=== PATIENT | male | born 1960 | race Caucasian/White ===

== ENCOUNTER → 2018-03-18 14:12 | Outpatient (POV) | payer MEDICAID, SELFPAY | PROVIDERS: Visit Provider Internal Medicine | DX: Z00.00 Encounter for general adult medical examination without abnormal findings (principal) ==

== ENCOUNTER → 2018-03-24 11:12 | Outpatient (CLI) | payer MEDICAID, SELFPAY ==
[2018-03-24 11:49] LABS: Basophils # 0.1 K/mm3 (0-0.2); Basophils % 0.9 % (0.1-2.0); Eosinophils # 0.1 K/mm3 (0.0-0.4); Eosinophils % 1.6 % (0.1-12.0); Hematocrit 45.7 % (42.0-52.0); Hemoglobin 14.3 g/dL (14.1-18.0); Lymphocytes # 2.8 K/mm3 (0.7-4.5); Lymphocytes % 32.6 K/mm3 (10-50); Mean Corpuscular HGB Conc 31.4 g/dL (31.8-35.4); Mean Corpuscular Hemoglobin 29.9 pg (27.0-31.2); Mean Corpuscular Volume 95.5 fl (80-94); Mean Platelet Volume 8.1 fl (7.4-10.4); Monocytes # 0.7 K/mm3 (0.1-1.0); Monocytes % 7.7 % (1.7-9.3); Neutrophils # 4.8 K/mm3 (1.8-7.8); Neutrophils % 57.2 % (37.0-80.0); Platelet Count 234 K/mm3 (142-424); Red Blood Count 4.79 M/mm3 (4.60-6.20); Red Cell Distribution Width 13.1 % (11.5-17.5); White Blood Count 8.5 K/mm3 (4.8-10.8)
[2018-03-24 14:49] LABS: Anion Gap 13.9 mEq/L (5-15); Blood Urea Nitrogen 19 mg/dL (7-18); Calcium 9.2 mg/dL (8.5-10.1); Carbon Dioxide 30 mmol/L (21.0-32.0); Chloride 104 mmol/L (98-107); Creatinine,Serum 0.93 mg/dL (0.70-1.30); Estimated Glomerular Filt Rate 84 ml/min (>60); GFR (African American) 102 ML/MIN (>60); Glucose 92 mg/dL (74-106); Potassium 4.9 mmoL/L (3.5-5.1); Sodium 143 mmol/L (136-145)
== END ==
PROVIDERS: PCP Internal Medicine Adolescent Medicine; Visit Provider Otolaryngology
DX: Z01.818 Encounter for other preprocedural examination (principal); D48.5 Neoplasm of uncertain behavior of skin
CPT/HCPCS: 36415; 80048; 85025

== ENCOUNTER → 2018-04-03 06:54 | Outpatient (CLI) | payer MEDICAID, SELFPAY ==
--- NOTE | 2018-04-03 06:56 | CA_ITS ---
PROCEDURE: 2-D M-mode and color Doppler study INDICATIONS FOR THE TEST: Chest pain COPD Heart Murmur Tobacco Smoking Palpitations Fatigue Syncope Edema+ Hypertension+Diabetes Mellitus+ Rheumatic Fever SOB+GODOY+Obesity Hyperlipidemia Family History HD Additional History CABG, bradycardia, angina, SOA PATIENT INFORMATION HEIGHT: 65 WEIGHT: 186 GENDER: Male B/P: 127/74 2-D/M-MODE INTERPRETATION: 2-D MEASUREMENTS OBSERVED VALUES IN CMS Right Ventricular Dimension (RVDd) 3.1 Interventricular Septum (Thickness)(IVsd) 0.9 Left Ventricular Internal Dimensions(LVIDd) 4.5 Left Ventricular Posterior Wall (Thickness)(LVPWd) 0.8 Aortic Root 3.0 Aortic Cusp Separation 2.0 Left Atrial Dimensions (LAD) 4.4 2D 1. Left atrium is mildly enlarged, left ventricle is normal size, mild concentric left ventricular hypertrophy, visually estimated ejection fraction 55% with no regional wall motion abnormality. 2. The right atrium and right ventricle are mildly enlarged with normal contractility. 3. The aortic valve is minimally thickened and fibrosed. 4. The mitral and tricuspid valve are grossly normal. 5. The pulmonic valve is poorly present. 6. No significant pericardial effusion noted. DOPPLER INTERROGATION: Doppler interrogation of the aortic, mitral and tricuspid valvular presence of mild mitral and tricuspid regurgitation, tricuspid regurgitation jet velocity is inadequate for calculation of the right ventricular systolic pressure, grade 1 diastolic dysfunction seen without tissue Doppler evidence of raised left atrial pressure. CONCLUSION: 1. Mildly left atrium, normal left ventricular size, mild concentric left ventricular hypertrophy, visually estimated ejection fraction 55% with no regional wall motion abnormality, grade 1 diastolic dysfunction seen without tissue Doppler evidence of raised left atrial pressure. 2. Mildly enlarged right ventricle with normal contractility. 3. Mild mitral and tricuspid regurgitation 4. No significant pericardial effusion noted.
--- NOTE | 2018-04-03 06:56 | NM_ITS ---
History and Indications: Coronary artery disease, history of NH, hypertension, diabetes, hyperlipidemia, family history, chest pain, shortness of breath palpitations and fatigue Procedure: Patient exercised on Arjun protocol 7 minutes, resting heart rate was 58 bpm resting blood pressure 168/87, with exercise maximum heart rate achieved was 1 40 bpm which is equal to 85% of the maximum predicted heart rate and a blood pressure was 230/86. Test was started due to shortness of breath and complained of chest pain. Patient has good exercise capacity achieved 10.1mets of workload on treadmill, the blood pressure response to exercise was hypertensive. Electrocardiogram: Resting electrocardiogram Showed sinus bradycardia, with exercise there is 1.[address] segment depression noted from the baseline EKG. The EKG portion of the exercise Myoview is positive for ischemia. Cardiac stress and resting SPECT images: Cardiac stress and resting SPECT images were obtained using technetium 99 Myoview 31.8 mCi stress and 10.2 mCi at rest. Gated SPECT further analysis of segmental wall motion and calculation of the ejection fraction also done. Cardiac stress and the suspect images show uniform myocardial activity without segmental perfusion abnormality, computer derived ejection fraction is 52% with no regional wall motion abnormality, right ventricle is normal size and contractility. Conclusion: 1. The EKG portion of the exercise Myoview is positive for ischemia, patient has good exercise capacity achieved 10.1mets of workload on treadmill, the blood pressure response to exercise was hypertensive, there was no exercise-induced chest discomfort, test was started shortness of breath. 2. No scintigraphic evidence of reversible ischemia seen, either derived ejection fraction is 52% with no regional wall motion abnormality, right ventricle is normal size and contractility.
--- NOTE | 2018-04-03 10:44 | HMH.ITSHM ---
Current Home Medications as stated by this patient Prashant Hernandez or renewals representative. asa metoprolol metformin lisinopril clopidogrel[]
== END ==
PROVIDERS: PCP Internal Medicine Adolescent Medicine; Visit Provider Internal Medicine
DX: I20.9 Angina pectoris, unspecified (principal); I11.9 Hypertensive heart disease without heart failure; E11.9 Type 2 diabetes mellitus without complications; R00.1 Bradycardia, unspecified; R06.00 Dyspnea, unspecified; R60.9 Edema, unspecified; G47.33 Obstructive sleep apnea (adult) (pediatric)
CPT/HCPCS: 78452; 93017; 93306; A9502

== ENCOUNTER → 2018-04-08 12:39 | Outpatient (CLI) | payer MEDICAID, SELFPAY ==
--- NOTE | 2018-04-08 12:42 | CT_ITS ---
CT chest wo con HISTORY: Follow-up pulmonary nodules, shortness of air ITS.REASON: PULMOARY NODULES, DYSPNEA ORDERING PHYSICIAN: Agapito De Dios MD PATIENT AGE: 57 years COMPARISON: 11/27/2016 Technique: Axial images obtained with sagittal and coronal reformats. All CT scans at the facility use one or more dose reduction, viz: automated exposure control, ma/kV adjustment per patient size (including targeted exams where dose is matched to indication, i.e. head), or iterative reconstruction technique. FINDINGS: There are scattered small nodes in the mediastinum which appear stable. There has been a prior CABG. No mediastinal or hilar mass or adenopathy. There are multiple scattered noncalcified pulmonary nodules appear stable compared to the previous study. Largest nodule on the right lung base posteriorly measuring approximately 8 mm unchanged. Largest nodule on the left is in the lung base posteriorly measuring 6 mm. No new nodules are identified.. No effusions or infiltrates. There are mild paraseptal emphysematous changes in the lung apices. No acute bony findings. Upper abdominal images show diffuse pancreatic calcifications consistent with chronic pancreatitis. IMPRESSION: Overall stable CT appearance of the chest. No change in the multiple noncalcified pulmonary nodules. Chronic pancreatitis
[2018-04-08 14:20] VITALS: PULSE 60; PULSE 62
[2018-04-08 14:50] VITALS: BP 130/88; BP 150/95; PULSE 62; PULSE 68; RESP 16; RESP 20; O2SAT 94; O2SAT 97
== END ==
PROVIDERS: PCP Internal Medicine Adolescent Medicine; Visit Provider Internal Medicine
DX: R91.8 Other nonspecific abnormal finding of lung field (principal); R06.09 Other forms of dyspnea
CPT/HCPCS: 71250; 94060; 94618; 94640; 94727; 94729

== ENCOUNTER → 2018-05-08 12:14 | Outpatient (CLI) | payer MEDICAID, SELFPAY ==
--- NOTE | 2018-05-08 12:25 | PC.NURSE ---
PATIENT SEEN FOR REMOVAL OF SUTURES ON THE TIP OF RIGHT EAR.
== END ==
LOC: UTC.OUT 12:15
PROVIDERS: Visit Provider Nurse Practitioner Family
DX: Y99.9 Unspecified external cause status (principal)

== ENCOUNTER → 2018-09-16 10:52 | Outpatient (POV) | payer MEDICAID, SELFPAY | PROVIDERS: Visit Provider Internal Medicine | DX: Z00.00 Encounter for general adult medical examination without abnormal findings (principal) ==

== ENCOUNTER → 2019-04-15 13:16 | Outpatient (CLI) | payer MEDICARE, SELFPAY ==
--- NOTE | 2019-04-15 13:24 | CT_ITS ---
PROCEDURE: CT CHEST WO CON CLINICAL INDICATION: PULMONARY NODULE Follow-up pulmonary nodule COMPARISON: WWO CT CHEST W/WO CONTRAST from 11/27/[address] chest wo con from 04/08/2018 TECHNIQUE: Axial images obtained with sagittal and coronal reformats. All CT scans at the facility use one or more dose reduction, viz: automated exposure control, ma/kV adjustment per patient size (including targeted exams where dose is matched to indication, i.e. head), or iterative reconstruction technique. FINDINGS: Prior CABG. Coronary artery stent and or calcification noted. The normal heart size. There is mild thickening of the distal aspect of the esophagus. This is nonspecific but could be seen with reflux esophagitis. Air is present in the esophagus is well. There are multiple noncalcified pulmonary nodules the as previously described.. These do not appear significantly changed. No new nodules are evident. There is some mild increased density along the minor fissure on the right within the inferior aspect of the right upper lobe. This is probably unchanged. Upper abdominal images demonstrates diffuse punctate calcifications of the pancreas consistent with chronic pancreatitis mainly in the body and head of the pancreas IMPRESSION: 1. Multiple noncalcified pulmonary nodules which appear stable. 2. Chronic pancreatitis 3. Thickening of the distal 1/2 of the esophagus which may be related to reflux esophagitis Dictated by: Gregory Daniels MD 04/16/2019 06:36 Electronically signed by Gregory Daniels MD in [place] 04/16/2019 06:36
== END ==
PROVIDERS: PCP Internal Medicine Adolescent Medicine; Visit Provider Internal Medicine
DX: R91.8 Other nonspecific abnormal finding of lung field (principal)
CPT/HCPCS: 71250

== ENCOUNTER → 2020-11-28 12:00 | Outpatient (CLI) | payer MEDICARE, SELFPAY | PROVIDERS: Visit Provider Surgery | DX: Z20.822 Contact with and (suspected) exposure to COVID-19 (principal) | CPT/HCPCS: U0003 ==

== ENCOUNTER 2020-11-30 06:25 | Day surgery (SDC) | payer MEDICARE, SELFPAY ==
[2020-11-28 08:47] VITALS: BMI 30.4
[2020-11-30 06:42] VITALS: BP 148/82; PULSE 61; RESP 18; TEMP 36.2; O2SAT 96
[2020-11-30 07:14] VITALS: O2SAT 96
--- NOTE | 2020-11-30 07:30 | P.PN_ITS ---
[facility] Anesthesia Checklist - Structural Data Admitted From: Home Planned Operative Procedure/s: colonoscopy Consent for Planned Operative Procedure(s) Verified: Yes - Additional verifications Anesthesia Reactions: No Hx Blood Transfusions: No Blood Transfusion Reaction: No - Airway Assessment C-Spine Mobility Assessed: Yes TMJ Mobility Assessed: Yes Dentition: Good Dentition - Neurological Assessment Level of Consciousness: Awake, Alert, Appropriate - Anesthesia Plan Anesthesia Risk discussed: Yes Anesthesia Plan: Verified ASA Class: III Anesthesia Type: MAC [facility] History I have reviewed the patient's past medical history: Yes Medical History: Reports:: Cancer (basal cell), Coronary Artery Disease, Diabetes Mellitus Type 2, Hiatal Hernia, Hyperlipidemia, Hypertension, Palpitations Denies:: Diabetes Mellitus Type 1, Internal Pacemaker, MRSA, Seizures *Have you ever received a pneumonia vaccine?: No *Have you received a flu vaccine this season?: No Other Medical History: Denies: Blood Transfusion Reaction Anesthesia experience/problems:: none Laterality Cases: Bilateral: Other Other Surgeries: Yes: CABG, Cardiac Catheterization, Cardiac Surgery, Colonoscopy, Coronary Stent, Hernia Repair, Skin Cancer Excision, Other. No: Pacemaker Amputation: No Fractures: No - *Social History Last grade of school completed: High school graduate Smoking Status: Never smoker Alcohol Intake: current Alcohol Intake Frequency:: holidays/special occasions only Substance Use Type: marijuana *Occupational Status:: retired Housing: house Household Members: significant other *Travel in the last 8 weeks: None Family Hx:: Cancer, Heart Attack
[2020-11-30 08:10] VITALS: BP 92/51; PULSE 54; RESP 18; TEMP 36.5; O2SAT 93
--- NOTE | 2020-11-30 08:14 | HMH.SCOPE ---
- Procedure: Date: 11/30/20 Patient Date of :: 1960 Procedure Performed:: Colonoscopy to terminal ileum with polypectomy using snare Indications:: 60-year-old male presents for colonoscopy due to history of polyps. I performed colonoscopy on 10/30/2011 and he had a tubular adenoma. Colonoscopy on 01/17/2016 revealed a small cecal tubular adenoma. 5-year colonoscopy was recommended. Patient does have a history of coronary artery bypass grafting in March 2016. He did have previous myocardial infarction and had stents placed in 1999 at the age of 39. Performing Provider:: Micah Woodson MD Referring Provider:: Milan Godinez MD Sedation:: MAC sedation Procedure:: Patient was taken to endoscopy procedure room. He was positioned in lateral decubitus position. Adequate intravenous sedation was achieved. He was found to have some minor external hemorrhoids. Digital examination was performed. Variable stiffness Olympus colonoscope was inserted via the anus. It was advanced to the cecum with some difficulty due to significant floppiness and redundancy of the sigmoid colon. Ultimately the ileocecal valve and appendiceal orifice were clearly identified. The colonoscope was advanced into the terminal ileum which appeared grossly normal. Colonoscope was withdrawn through the colon with careful surveillance. At the hepatic flexure he had a moderate, 8 to 10 mm adenomatous appearing sessile polyp removed with cold cutting snare. Just distal to this in the proximal transverse colon there was a tiny diminutive polyp removed with cold cutting snare. No other identifiable polyps are noted after remainder of the colon was surveyed. Retroflexion revealed minor nonbleeding internal hemorrhoids. Colonoscope was withdrawn. Findings:: Moderate 8 to 10 mm sessile adenomatous polyp at the hepatic flexure Tiny diminutive polyp distal to this in the proximal transverse colon Recommendations:: Repeat colonoscopy 3 to 5 years pending the pathology Complications:: None immediately apparent Estimated blood obtained (mL): 2
[2020-11-30 08:20] VITALS: BP 104/58; PULSE 58; RESP 16; O2SAT 97
[2020-11-30 08:30] VITALS: BP 110/51; PULSE 60; RESP 16; TEMP 36.5; O2SAT 99
[2020-11-30 08:40] VITALS: BP 115/66; PULSE 60; RESP 16; O2SAT 99
[2020-11-30 08:50] LABS: POC Glucose,Bedside 123 (70-110)
== END 2020-11-30 08:47 | disposition home or self-care (01) ==
LOC: OUTP 06:27
PROVIDERS: PCP Internal Medicine Adolescent Medicine; Visit Provider Surgery
PROC: 0DJD8ZZ Inspection of Lower Intestinal Tract, Via Natural or Artificial Opening Endoscopic (ICD-10-PCS; principal; 2020-11-30 07:30)
DX: Z12.11 Encounter for screening for malignant neoplasm of colon (principal); Z87.19 Personal history of other diseases of the digestive system; I25.2 Old myocardial infarction; K63.5 Polyp of colon; K56.2 Volvulus; E11.9 Type 2 diabetes mellitus without complications; E78.5 Hyperlipidemia, unspecified; I10 Essential (primary) hypertension; R00.2 Palpitations; Z85.828 Personal history of other malignant neoplasm of skin; Z95.1 Presence of aortocoronary bypass graft; Z80.9 Family history of malignant neoplasm, unspecified
CPT/HCPCS: 45385; 82962; 88305

== ENCOUNTER → 2020-12-22 07:13 | Outpatient (CLI) | payer MEDICARE, SELFPAY ==
--- NOTE | 2020-12-22 07:14 | NM_ITS ---
APPROVED REPORT Exam: Nuclear Stress Test Patient Location: Outpatient Stress Tech: Elizabeth Cleveland [place] Tech:Alie CmJOCY RT(R)(N) Ht: 5 ft 7 in Wt: 188 lbs HR: 55 bpm BP: 126/72 mmHg BSA: 1.97 m2 BMI: 29.4 Procedure: Patient exercised on Arjun protocol 7.30 minutes and sec, resting heart rate 55 bpm, resting blood pressure 126/72 mmHg, with exercise maximum heart rate achived was 103 bpm which is 64 % of the maximum predicted heart rate and blood pressure was 208/76 mmHg. Patient denied any complaint of chest pain. Patient has Good exercise capacity, achieved 10.1 METs of workload on treadmill, the blood pressure response to exercise was Hypertensive. Electrocardiogram Resting electrocardiogram showed sinus rhythm, with exercise there is [address] segment depression noted from the baseline EKG. The EKG portion of the exercise Myoview is positive for ischemia, patient did not achieve the target heart rate. Cardiac Stress and Resting SPECT Images: Cardiac Stress and Resting SPECT images were obtained using technetium 99m Myoview 32.6 mCi stress and 10.62 mCi at rest. Gated SPECT for analysis of segmental wall motion and calculation of the ejection fraction also done. Prone images were also obtained. Cardiac stress and resting SPECT images show uniform myocardial activity without segmental perfusion abnormality, computer derived ejection fraction is 54% with no regional wall motion abnormality, right ventricle is normal size and contractility. Conclusion: 1. The EKG portion of the exercise Myoview is positive for ischemia, patient has good exercise capacity achieved 10.1 METs of workload on treadmill, the blood pressure response to exercise was hypertensive, there was no exercise-induced chest discomfort, patient did not achieve the target heart rate. 2. No scintigraphic evidence of reversible ischemia seen, computer derived ejection fraction 54% with no regional wall motion abnormality, right ventricle is normal size and contractility. Electronically signed by : Martin Lutz MD 12/22/2020 14:47:56
--- NOTE | 2020-12-22 09:52 | CA_ITS ---
APPROVED REPORT Exam: Exercise Treadmill Technologist: Elizabeth Cleveland, Ht: 5 ft 7 in Wt: 188 lbs BSA: 1.97 m2 HR: 55 bpm BP: 126/72 mmHg Medical History Medications: Aspirin,,,,, Metformin,,,,, Losartan,,,,, Pantoprazole,,,,, Atorvastatin,,,,, HCTZ,,,,, Carvedilol,,,,, CloPIdogrel,,,,, Farixiga,,,,, Stress Test Details Test: Arjun HR Resting HR: 54 bpm Max Heart Rate (APMHR): 161.645318 bpm Max HR Achieved: 103 bpm Target HR (85% APMHR): 136.850876 bpm % of APMHR: 63.98 Recovery HR: 57 bpm BP Resting BP: 126/72 mmHg Max BP: 208/76 mmHg Recovery BP: 130.0/62.0 mmHg ECG Resting ECG: Sinus bradycardia, cannot R/O old septal NV, ST-T abns inferiorly Clinical Exercise duration: 07:31 min Highest Stage Achieved: Exercise capacity: 10.1 METs Stress ECG Conclusion Exercised 7:30 on Arjun protocol. Max HR: 103 % of PM: 64% Max BP: 208/76 MET's: 10.1 Test stopped due to: SOA, Fatigue Symptoms: SOA, No CP. Arrhythmias/Ectopy: None ST-T Changes: Motion artifact makes accurate interp. difficult. There is approx 1.5mm horizontal ST depression laterally and exaggeration of baseline abns inferiorly noted in recovery. Conclusion: EKG changes (+) for ischemia. Blunted HR response on Carvedilol. Myoview images reported separately. Test Summary . . . . . . . Cardiolite injected . Stop exercise at 07:31 . . . . . . Electronically signed by : Martin Lutz MD 12/22/2020 14:44:06
== END ==
PROVIDERS: PCP Internal Medicine Adolescent Medicine; Visit Provider Physician Assistant
DX: E78.2 Mixed hyperlipidemia (principal); I11.9 Hypertensive heart disease without heart failure; I25.10 Atherosclerotic heart disease of native coronary artery without angina pectoris; R06.00 Dyspnea, unspecified; Z95.1 Presence of aortocoronary bypass graft; Z79.84 Long term (current) use of oral hypoglycemic drugs
CPT/HCPCS: 78452; 93017; A9502

== ENCOUNTER → 2020-12-27 08:00 | Outpatient (CLI) | payer MEDICARE, SELFPAY ==
[2020-12-28 11:51] LABS: Basophils # 0.1 K/mm3 (0-0.2); Basophils % 1.1 % (0.1-2.0); Eosinophils # 0.1 K/mm3 (0.0-0.4); Eosinophils % 0.9 % (0.1-12.0); Hematocrit 51.1 % (42.0-52.0); Hemoglobin 16.4 g/dL (14.1-18.0); Lymphocytes # 2.9 K/mm3 (0.7-4.5); Lymphocytes % 28.3 % (10-50); Mean Corpuscular Hemoglobin 30.7 pg (27.0-31.2); Mean Corpuscular Volume 95.8 fl (80-94); Mean Platelet Volume 10.7 fl (7.4-10.4); Monocytes # 0.4 K/mm3 (0.1-1.0); Neutrophils # 6.7 K/mm3 (1.8-7.8); Neutrophils % 65.7 % (37.0-80.0); Platelet Count 235 K/mm3 (142-424); Red Blood Count 5.34 M/mm3 (4.60-6.20); Red Cell Distribution Width 13.8 % (11.5-17.5); White Blood Count 10.2 K/mm3 (4.8-10.8)
[2020-12-28 12:14] LABS: Hemoglobin A1C 5.9 % (4.0-6.0)
[2020-12-28 13:34] LABS: Chloride 106 mmol/L (98-107); Sodium 144 mmol/L (136-145)
[2020-12-28 13:35] LABS: Potassium 4.8 mmoL/L (3.5-5.1)
[2020-12-28 13:37] LABS: Alanine Aminotransferase 27 U/L (12-78); Albumin Level 4.7 g/dl (3.5-5.0); Albumin/Globulin Ratio 1.8 (1.1-1.8); Alkaline Phosphatase 84 U/L (38-126); Anion Gap 15.8 mEq/L (5-15); Aspartate Amino Transferase 26 U/L (17-59); Bilirubin,Total 0.7 mg/dl (0.2-1.3); Blood Urea Nitrogen 22 mg/dl (9-20); Carbon Dioxide 27 mmol/L (22.0-30.0); Cholesterol 149 mg/dl (140-200); Estimated Glomerular Filt Rate 76 ml/min (>60); GFR (African American) 93 ML/MIN (>60); Globulin 2.6 g/dL (1.3-3.2); Total Protein,Serum 7.3 g/dl (6.3-8.2); Triglycerides 180 mg/dl (30-150); VLDL Cholesterol 36 mg/dL (0-40)
[2020-12-28 13:38] LABS: Calcium 10.1 mg/dl (8.4-10.2); Chol/HDL Ratio 4.4 (1-3.5); Glucose 102 mg/dl (74-100); HDL Cholesterol 34 mg/dl (40-60)
[2020-12-28 14:00] LABS: Triiodothryronine (T3) Uptake 29 % (23.5-40.5)
[2020-12-28 14:01] LABS: Free Thyroxine Index 2.3 ug/dL (5.93-13.13); T4 (Thyroxine) 7.9 ug/dl (5.53-11.0)
[2020-12-28 14:14] LABS: Thyroid Stimulating Hormone 4.57 uIU/mL (0.465-4.68)
== END ==
PROVIDERS: Visit Provider Internal Medicine Adolescent Medicine
DX: I25.10 Atherosclerotic heart disease of native coronary artery without angina pectoris (principal); E04.9 Nontoxic goiter, unspecified; E11.9 Type 2 diabetes mellitus without complications; Z79.84 Long term (current) use of oral hypoglycemic drugs
CPT/HCPCS: 80053; 80061; 83036; 84436; 84443; 84479; 85025

== ENCOUNTER → 2021-01-09 08:28 | Outpatient (CLI) | payer MEDICARE, SELFPAY ==
--- NOTE | 2021-01-09 08:28 | CA_ITS ---
APPROVED REPORT EXAM: Comprehensive 2D, Doppler, and color-flow Echocardiogram Pit Shoveler: Carina May RVT Ht: 5 ft 7 in Wt: 188lbs BSA: 1.97 BP: 108/70 mmHg Indications: soa,cad,cabg,dstents,dm,palps,hld,htn 2D Dimensions LVOT 2.00 cm (M/F) 1.5-2.5 LA Volume 34.00 mL LA Volume Index 17.25 mL/m2 (M/F) 16-34 M-Mode Dimensions RVDd 2.60 cm (0.9-2.6) LA Diam 4.30 cm (1.9-4.0) LVDd 4.60 cm (3.5-5.7) Ao Diam 2.60 cm (2.0-3.7) LVDs 2.80 cm (3.5-5.7) AV Cusp 2.10 cm (1.5-2.6) IVSd 1.20 cm (0.6-1.1) PWd 1.50 cm (0.6-1.1) EF (Teich) 69.60% FS 39.10% EDV (Teich) 97.30 mL ESV (Teich) 29.60 mL LV Diastology E Decel Time 218.00 (160-240 msec) E/A Ratio 1.0 MED E' 6.53 (< 7 cm/sec) E'/MED E' Ratio 11.60 (>14) LAT E' 9.85 (<10 cm/sec) E/LAT E' Ratio 7.70 (>14) Aortic Valve AoV Peak Louie. 110.00 (50-130 cm/s) AO Peak GR. 5.00 mmHg Mitral Valve MV E Max Louie. 76.00 (40-130 cm/s) MV A Velocity 77.50 (40-130 cm/s) E/A Ratio 1.00 MV Decel. Time 218.00 (160-240 ms) Pulmonary Valve PV Peak Velocity 63.70 (50-150 cm/s) Left Ventricle Left atrium is mildly enlarged, left ventricle is normal size, mild concentric left ventricular hypertrophy, visually estimated ejection fraction 55% with no regional wall motion abnormality, diastolic parameters are inconclusive. Right Ventricle Right atrium and right ventricle mildly enlarged with normal contractility. Aortic Valve Aortic valve is minimally thickened and fibrosed, there is no aortic stenosis or aortic insufficiency. Mitral Valve Mitral valve leaflets are minimally thickened, there is mild mitral regurgitation. Tricuspid Valve Tricuspid valve grossly normal, there is mild tricuspid regurgitation, tricuspid regurgitation jet velocity is inadequate for calculation of the right ventricular systolic pressure. Pulmonic Valve Pulmonic valve is poorly visualized. Great Vessels Aortic root is normal size. Pericardium No significant pericardial effusion noted. Conclusion 1. Mild biatrial normal, normal left ventricular size, mild concentric left ventricular hypertrophy, visually estimated ejection fraction 55% with no regional wall motion abnormality, diastolic parameters are inconclusive. 2. Mildly enlarged right ventricle with normal contractility. 3. Mild mitral and tricuspid regurgitation. 4. No significant pericardial effusion noted. Electronically signed by : Martin Lutz MD 01/09/2021 19:06:55
== END ==
PROVIDERS: PCP Internal Medicine Adolescent Medicine; Visit Provider Physician Assistant
DX: E78.2 Mixed hyperlipidemia (principal); I11.9 Hypertensive heart disease without heart failure; I25.10 Atherosclerotic heart disease of native coronary artery without angina pectoris; R06.00 Dyspnea, unspecified; Z95.1 Presence of aortocoronary bypass graft
CPT/HCPCS: 93306

== ENCOUNTER → 2021-01-27 15:09 | Outpatient (CLI) | payer MEDICARE, SELFPAY ==
[2021-01-27 16:42] LABS: Chloride 104 mmol/L (98-107); Potassium 4.2 mmoL/L (3.5-5.1); Sodium 141 mmol/L (136-145)
[2021-01-27 16:45] LABS: Anion Gap 15.2 mEq/L (5-15); Blood Urea Nitrogen 17 mg/dl (9-20); Carbon Dioxide 26 mmol/L (22.0-30.0); Estimated Glomerular Filt Rate 86 ml/min (>60); GFR (African American) 105 ML/MIN (>60)
[2021-01-27 16:46] LABS: Calcium 9.8 mg/dl (8.4-10.2); Glucose 92 mg/dl (74-100)
[2021-01-27 23:27] LABS: Basophils # 0.1 K/mm3 (0-0.2); Basophils % 1.1 % (0.1-2.0); Eosinophils # 0.1 K/mm3 (0.0-0.4); Eosinophils % 0.6 % (0.1-12.0); Hematocrit 47.1 % (42.0-52.0); Hemoglobin 15.6 g/dL (14.1-18.0); Lymphocytes # 3.7 K/mm3 (0.7-4.5); Lymphocytes % 46.1 % (10-50); Mean Corpuscular HGB Conc 33.2 g/dL (31.8-35.4); Mean Corpuscular Hemoglobin 31.4 pg (27.0-31.2); Mean Corpuscular Volume 94.6 fl (80-94); Mean Platelet Volume 9.9 fl (7.4-10.4); Monocytes # 0.4 K/mm3 (0.1-1.0); Monocytes % 5.1 % (1.7-9.3); Neutrophils # 3.8 K/mm3 (1.8-7.8); Neutrophils % 47.2 % (37.0-80.0); Platelet Count 238 K/mm3 (142-424); Red Blood Count 4.98 M/mm3 (4.60-6.20); Red Cell Distribution Width 13.6 % (11.5-17.5)
== END ==
PROVIDERS: Visit Provider Nurse Practitioner Family
DX: E78.2 Mixed hyperlipidemia (principal); I11.9 Hypertensive heart disease without heart failure; I20.8 Other forms of angina pectoris; R06.00 Dyspnea, unspecified; R94.31 Abnormal electrocardiogram [ECG] [EKG]; R94.39 Abnormal result of other cardiovascular function study; Z95.1 Presence of aortocoronary bypass graft; I63.9 Cerebral infarction, unspecified; Z11.52 Encounter for screening for COVID-19
CPT/HCPCS: 36415; 80048; 85025; C9803; U0003; U0005

== ENCOUNTER 2021-02-06 08:39 | Day surgery (SDC) | payer MEDICARE, SELFPAY ==
[2021-02-06] VITALS (16 sets, daily range): BP systolic 95–172; BP diastolic 50–92; PULSE 48–59; RESP 16–18; O2SAT 93–100; BMI 29.2
--- NOTE | 2021-02-06 07:09 | IR_ITS ---
APPROVED REPORT Patient Location: Outpatient Card Grinder: JOCY Shi RT (R) PROCEDURES Left heart catheterization Left ventriculogram Selective coronary angiogram Left internal mammary angiography INDICATION Coronary artery disease, History of coronary bypass surgery, Progressive angina pectoris, Abnormal Myoview, Informed consent was obtained prior to the procedure. COMPLICATIONS None Estimated Blood Loss: Less than 10 mls TECHNIQUE One percent lidocaine used to anesthetize the right groin. The right femoral artery was accessed via the Seldinger technique and a 5 Lithuanian sheath was placed in the right femoral artery. A JL 4, JR4 catheter were used to perform left heart catheterization, left ventriculogram selective coronary angiography as well as nonselective angiography of the left internal mammary artery. At the end of the procedure the patient was transferred to the postop holding area in stable condition for sheath removal ANGIOGRAPHIC RESULTS The left main artery Normal The left anterior descending artery Is ostially patent with a 40 to 50% concentric narrowing which is followed by large proximal stent which has concentric 50 to 60% stenosis. The LAD is then occluded after the third small septal ruby software developer. There is no angiographic evidence of significant collateralization to the LAD from either the large ramus or the right coronary artery The circumflex artery Is nondominant gives rise to a large ramus intermedius which is widely patent with mild ostial 40% stenosis. The circumflex artery itself is a small nondominant widely patent vessel The right coronary artery Large dominant with mild diffuse 10% luminal irregularities The RAMIREZ ventriculogram reveals Normal 60 to 65% The left ventricular end-diastolic pressure 10 mmHg The left internal mammary artery is atretic IMPRESSION Occluded mid LAD as described above with no angiographic evidence of collateralization Normal ejection fraction Normal left ventricular end-diastolic pressure PLAN 1. Patient has normal LV function with good exercise capacity. I strongly recommend medical management at this time. 2. Maximize antianginal medication 3. Avoidance of tobacco products 4. LDL less than 55 5. Should patient's angina become recalcitrant despite maximal antianginal medications only then would I consider opening the chronically occluded mid LAD. 6. Strongly favor medical management Electronically signed by : Trung Nichols MD 02/06/2021 10:44:28
[2021-02-06 09:09] LABS: Coronavirus 19, PCR Not Detected (NotDetected); Influenza A, PCR Not Detected (NotDetected); Influenza B, PCR Not Detected (NotDetected)
== END 2021-02-06 13:20 | disposition home or self-care (01) ==
LOC: CATHLAB 08:40
PROVIDERS: PCP Internal Medicine Adolescent Medicine; Visit Provider Internal Medicine
DX: E78.2 Mixed hyperlipidemia (principal); I11.9 Hypertensive heart disease without heart failure; R94.31 Abnormal electrocardiogram [ECG] [EKG]; R94.39 Abnormal result of other cardiovascular function study; Z95.1 Presence of aortocoronary bypass graft; I25.118 Atherosclerotic heart disease of native coronary artery with other forms of angina pectoris; Z79.84 Long term (current) use of oral hypoglycemic drugs; Z79.01 Long term (current) use of anticoagulants; Z79.899 Other long term (current) drug therapy; Z20.822 Contact with and (suspected) exposure to COVID-19; I25.82 Chronic total occlusion of coronary artery
CPT/HCPCS: 93459; 99152; 99153; C1725; C1769; C1894; C9803; J1644; Q9967; U0003; U0005

== ENCOUNTER → 2021-02-13 09:20 | Outpatient (CLI) | payer MEDICARE, SELFPAY ==
--- NOTE | 2021-02-13 09:23 | XR_ITS ---
PROCEDURE: XR CHEST 2V CLINICAL HISTORY: to look at wires post CABG COMPARISON: CT CT CHEST WO CON from 04/15/2019 FINDINGS: Prior CABG. Normal heart size. The median sternotomy wires appear intact. Epicardial pacer wires are present. The lungs are clear without infiltrates, suspicious nodules, or pleural effusions. Mild degenerative change thoracic spine. IMPRESSION: Prior CABG. No acute finding Dictated by: Gregory Daniels MD 02/13/2021 09:51 Gregory Daniels MD in [place] 02/13/2021 09:51
== END ==
PROVIDERS: PCP Internal Medicine Adolescent Medicine; Visit Provider Nurse Practitioner Family
DX: E78.2 Mixed hyperlipidemia (principal); I11.9 Hypertensive heart disease without heart failure; I25.10 Atherosclerotic heart disease of native coronary artery without angina pectoris; R07.9 Chest pain, unspecified; R94.31 Abnormal electrocardiogram [ECG] [EKG]; Z95.1 Presence of aortocoronary bypass graft
CPT/HCPCS: 71046

== ENCOUNTER 2022-12-12 10:17 | Day surgery (SDC) | payer MEDICARE, SELFPAY ==
[2022-12-12 11:17] VITALS: BP 131/76; PULSE 58; RESP 16; TEMP 36.1; O2SAT 95; BMI 29.6
[2022-12-12 11:19] LABS: POC Glucose,Bedside 121 (70-110)
--- NOTE | 2022-12-12 11:52 | P.PNANES_ITS ---
[facility] Disclaimer: The information contained in this section may have been updated after the patient was seen, as this information can be updated by other users. Medical History Abnormal cardiovascular stress test Abnormal electrocardiography Atypical angina Chest pain Difficulty swallowing Dyspnea History of heart attack Surgical History (Updated 12/12/22 @ 11:13 by Radha Liu RN) History of heart artery stent History of hernia repair Hx of heart bypass surgery Family History (Updated 12/12/22 @ 11:11 by Radha Liu RN) Other Family history of cancer Family history of heart disease Social History (Updated 12/12/22 @ 11:14 by Radha Liu RN) Smoking Status: Former smoker second hand exposure: Yes alcohol intake: never substance use type: marijuana current occupational status: retired Travel in the last 8 weeks: Inside the [facility] household members: significant other housing: house current occupational exposures/hazards: No caffeine: Yes [facility] Anesthesia Checklist Patient Identification Patient Identification: Arm Band and Verbal (Name & ) Structural Data Planned Operative Procedure/s: EGD Consent for Planned Operative Procedure(s) Verified: Yes Verified Documents: Surgical Consent NPO Status Verified Time NPO: 00:00 Additional verifications Anesthesia Reactions: No Hx Blood Transfusions: No Blood Transfusion Reaction: No Airway Assessment C-Spine Mobility Assessed: Yes TMJ Mobility Assessed: Yes Dentition: Good Dentition Neurological Assessment Level of Consciousness: Awake and Alert Anesthesia Plan Anesthesia Risk discussed: Yes ASA Class: III Anesthesia Type: IV sedation
--- NOTE | 2022-12-12 11:56 | EXP.ANES.CKL ---
[facility] Disclaimer: The information contained in this section may have been updated after the patient was seen, as this information can be updated by other users. Medical History Abnormal cardiovascular stress test Abnormal electrocardiography Atypical angina Chest pain Difficulty swallowing Dyspnea History of heart attack Surgical History (Updated 12/12/22 @ 11:13 by Radha Liu RN) History of heart artery stent History of hernia repair Hx of heart bypass surgery Family History (Updated 12/12/22 @ 11:11 by Radha Liu RN) Other Family history of cancer Family history of heart disease Social History (Updated 12/12/22 @ 11:14 by Radha Liu RN) Smoking Status: Former smoker second hand exposure: Yes alcohol intake: never substance use type: marijuana current occupational status: retired Travel in the last 8 weeks: Inside the [facility] household members: significant other housing: house current occupational exposures/hazards: No caffeine: Yes [facility] Anesthesia Checklist Patient Identification Patient Identification: Arm Band and Verbal (Name & ) Structural Data Admitted From: Home Planned Operative Procedure/s: EGD Consent for Planned Operative Procedure(s) Verified: Yes Verified Documents: Surgical Consent NPO Status Verified Time NPO: 00:00 Additional verifications Anesthesia Reactions: No Hx Blood Transfusions: No Blood Transfusion Reaction: No Airway Assessment C-Spine Mobility Assessed: Yes TMJ Mobility Assessed: Yes Dentition: Good Dentition Neurological Assessment Level of Consciousness: Awake and Alert Anesthesia Plan Anesthesia Risk discussed: Yes ASA Class: III Anesthesia Type: IV sedation
[2022-12-12 11:59] VITALS: O2SAT 95
--- NOTE | 2022-12-12 12:13 | HMH.SCOPE ---
Procedure: Date: 12/12/22 Patient Date of :: 1960 Procedure Performed:: EGD Indications:: Dysphagia Performing Provider:: Bar Jain MD Referring Provider:: Debbie Boyer APRN Sedation:: See RN records Procedure:: The gastroscope was gently passed through the incisoral orifice into the oral cavity and under direct visualization the esophagus was intubated. The endoscope was passed down the esophagus, through the stomach, and into the duodenum. Color, texture, mucosa, and anatomy of the esophagus, stomach, and duodenum were carefully examined with the scope. Findings:: Oropharynx: normal Esophagus: Benign appearing narrowing within distal third of esophagus. Biopsies obtained. Dilatation performed with 56F bougie dilator EG Junction: intact at 40 cm Cardia: Appearance of moderate sized hiatal hernia Fundus: normal Body: diffuse erythema. biopsies obtained Antrum: pancreatic rest less approximately 8-9 mm in size. Biopsies obtained Duodenal bulb: normal Duodenum (second and third portion): normal Impression: Benign appearing narrowing within lower third of esophagus Possible moderate sized hiatal hernia Pancreatic rest in antrum Recommendations:: Await pathology results Follow up with referring provider Complications:: none Estimated blood obtained (mL): 0 Colonoscopy Component Colonoscopy Component Was a colonoscopy performed during today's procedure?: No
[2022-12-12 12:18] VITALS: BP 98/60; PULSE 64; RESP 14; TEMP 36.1; O2SAT 94
[2022-12-12 12:28] VITALS: BP 113/66; PULSE 60; RESP 16; TEMP 36.1; O2SAT 100
[2022-12-12 12:38] VITALS: BP 102/57; PULSE 59; RESP 18; TEMP 36.1; O2SAT 96
[2022-12-12 12:48] VITALS: BP 121/76; PULSE 58; RESP 18; TEMP 36.1; O2SAT 98
== END 2022-12-12 12:48 | disposition home or self-care (01) ==
PROVIDERS: PCP Internal Medicine Adolescent Medicine; Visit Provider Internal Medicine
PROC: 0DJ08ZZ Inspection of Upper Intestinal Tract, Via Natural or Artificial Opening Endoscopic (ICD-10-PCS; CPT 43235; principal; 2022-12-12 11:30)
DX: K22.2 Esophageal obstruction; R13.10 Dysphagia, unspecified
CPT/HCPCS: 43239; 43248; 82962; 88305

== ENCOUNTER 2025-04-23 07:47 | Day surgery (SDC) | payer MEDICARE, SELFPAY ==
[2025-04-20 11:09] VITALS: BMI 29.8
--- NOTE | 2025-04-23 06:23 | P.HP_ITS ---
HPI HPI HPI: Patient is a 64-year-old male with history of GERD, hyperlipidemia, hypertension, coronary artery disease with previous coronary artery bypass grafting. He has a history of polyps. I performed colonoscopy on 10/30/2011 and he had a tubular adenoma. Colonoscopy on 01/17/2016 revealed a small cecal t ubular adenoma. Colonoscopy on 11/30/2020 revealed 10 mm hepatic flexure tubular adenoma and a small distal transverse colon tubular adenoma. Recommendations were for follow-up colonoscopy in 3 years. . [facility] Disclaimer: The information contained in this section may have been updated after the patient was seen, as this information can be updated by other users. Medical History (Updated 04/23/25 @ 08:57 by Micah Woodson MD) Sleep apnea Diabetes Skin cancer History of heart attack Chest pain Difficulty swallowing Abnormal electrocardiography Abnormal cardiovascular stress test Dyspnea Atypical angina Surgical History History of colonoscopy History of hernia repair History of heart artery stent Hx of heart bypass surgery Family History Other Diabetes Family history of cancer Family history of heart disease Social History Smoking Status: Never smoker second hand exposure: Yes alcohol intake: never substance use type: marijuana current occupational status: retired and disabled Travel in the last 8 weeks?: None household members: significant other housing: house current occupational exposures/hazards: No caffeine: Yes Have you lived/traveled outside [place] in past 30 days?: No Contact w/someone who lives/traveled outside [place] past 30 days?: No Exposure to someone with infectious disease in past 14 days?: No Do you have a fever (greater than 100.4 F or 38 C)?: No Have you tested positive for COVID-19?: No Exposed to someone with COVID-19 in past 14 days?: No Do you have a sore throat?: No Do you have a cough?: No Do you have any weakness?: No Are you experiencing any nausea/vomitting?: No Do you have any diarrhea?: No Are you experiencing any unusual bleeding?: No Do you have any muscle aches/pain?: No Do you have any abdominal pain?: No Are you experiencing loss of taste or smell?: No Other Medical History Have you received the Flu Vaccine for this season: No Have you received the Pneumonia Vaccine: Yes Meds Home Medications and Allergies Home Medications ?Medication ?Instructions ?Recorded ?Confirmed ?Type pantoprazole 40 mg tablet,delayed 40 mg PO DAILY Reflu x/Acid reflux 03/21/18 04/20/25 History release 30 days #30 tabs metformin 500 mg tablet 500 mg PO DAILY sugar 90 day s #90 03/24/18 04/20/25 History tabs omega-3 fatty acids 1,000 mg 1,000 mg PO DAILY Supplem ent 03/24/18 04/20/25 History capsule (Fish Oil Concentrate) aspirin 81 mg tablet,delayed 81 mg PO DAILY prevent #3 0 tabs 07/03/18 04/20/25 Rx release B-complex with vitamin C (Super B 1 tab PO DAILY Suppl ement 10/08/18 04/20/25 History Complex-Vitamin C tablet) carvedilol 25 mg tablet (Coreg) 25 mg PO BID BP 04/20/25 History losartan 50 mg tablet 50 mg PO DAILY bp 10/08/18 1 06/21/24 History dapagliflozin propanediol 10 mg 10 mg PO DAILY Diabete s 05/31/20 04/20/25 History tablet (Farxiga) hydrochlorothiazide 25 mg tablet 25 mg PO DAILY bp 04/20/25 History cholecalciferol (vitamin D3) 25 50 mcg PO DAILY Supple ment 10/24/22 04/20/25 History mcg (1,000 unit) capsule atorvastatin 80 mg tablet See Rx Instructions .Route 0 12/10/22 04/20/25 History .COMPLEX blood pressure isosorbide mononitrate 30 mg See Rx Instructions .Rout e 12/10/22 04/20/25 History tablet,extended release 24 hr .COMPLEX Heart Disease sodium,potassium,mag sulfates 17.5 See Rx Instructions PO .COMPLEX 04/07/25 04/20/25 Rx gram-3.13 gram-1.6 gram oral soln #354 mL (Suprep Bowel Prep Kit) ascorbic acid (vitamin C) 1,000 mg 1,000 mg PO DAILY 1 06/21/24 04/20/25 History tablet (Vitamin C) fluticasone propionate 50 1 spray intranasal DAILY PRN . 04/20/25 04/20/25 History mcg/actuation nasal spray,suspension glucosamine sulf dipot 0 cap PO DAILY 04/20/2507/14 History chlr,msm,chond 550 mg-C 30 mg-john 1 mg capsule (Glucosamine Chondroitin) New Prescriptions to Start Prescriptions: Allergies Allergy/AdvReac Type Severity Reaction Status Date / Time latex Allergy Intermediate BLISTERING, Verified 04/20/25 10:55 WELTS Exam Data for Last 24 hours I & O for Last 24 hours: Intake & Output 04/20/25 04/21/25 04/22/25 04/23/25 11:59 11:59 11:59 11:59 Weight 185 lb Constitutional Constitutional: no acute distress *Routine HEENT Exam Head: Present normocephalic Eye: Present EOMI and PERRL ENT: Present mucous membranes moist *Routine Neck Exam Neck: Present supple; Absent lymphadenopathy *Routine Respiratory Exam Respiratory: Present CTA bilaterally *Routine Cardiovascular Exam Cardiovascular: Present RRR *Routine Abdominal Exam Abdominal: Present soft and normoactive bowel sounds; Absent tenderness *Routine Rectal Exam Rectal:: deferred *Routine Genitalia Exam Genitalia:: deferred *Routine Extremities Exam Extremities: Absent cyanosis, clubbing or edema *Routine Skin Exam Skin: Present warm; Absent rash *Routine Neurological Exam Neurological: Present alert and oriented X3 Assessment and Plan *Assessment and plan (1) Tubular adenoma of colon: Status: Acute Category: Medical Code(s): D12.6 - Benign neoplasm of colon, unspecified Plan Colonoscopy
--- NOTE | 2025-04-23 07:51 | HMH.SCOPE ---
Procedure: Date: 04/23/25 Patient Date of :: 1960 Procedure Performed:: Total colonoscopy to terminal ileum with polypectomy using snare and biopsy forceps Indications:: Patient is a 64-year-old male with history of GERD, hyperlipidemia, hypertension, coronary artery disease with previous coronary artery bypass grafting. He has a history of polyps. I performed colonoscopy on 10/30/2011 and he had a tubular adenoma. Colonoscopy on 01/17/2016 revealed a small cecal tubular adenoma. Colonoscopy on 11/30/2020 revealed 10 mm hepatic flexure tubular adenoma and a small distal transverse colon tubular adenoma. Recommendations were for follow-up colonoscopy in 3 years. . Performing Provider:: Micah Woodson MD Referring Provider:: Milan Godinez MD Sedation:: MAC sedation Procedure:: Patient history was obtained and appropriate physical examination was performed. Patient's medications and allergies were reviewed. Informed consent was obtained after explaining the benefits, alternatives, and risks of the procedure including, but not limited to, bleeding, perforation, missed lesions, and adverse reaction to anesthesia medications. Patient was transported to endoscopy procedure room. Patient was connected to monitoring devices. Throughout the procedure the patient's blood pressure, pulse, and oxygen saturations were monitored continuously. Patient identification and planned procedure were verified by the staff. Patient was positioned in lateral decubitus position. Digital anorectal exam was performed. Variable stiffness Olympus colonoscope was inserted and advanced under direct visualization to the cecum. Adequacy of the colonic preparation was noted. The colonoscope was advanced a short distance into the terminal ileum. The colonoscope was then slowly withdrawn while carefully examining the color, texture, anatomy, and integrity of the mucosoa circumferentially. Within the rectum retroflexion was performed. Colonoscope was then withdrawn. Impression: Colonic preparation was good. There was some redundancy to the colon. There was some hyper peristalsis and a lack of relaxation. Within the cecum there was a possible diminutive polyp removed in a piecemeal fashion using biopsy forceps. In the ascending colon there was what appeared to be a tiny diminutive adenomatous polyp removed with cold snare. Transverse colon there was an adenomatous appearing polyp removed with cold snare. In the rectosigmoid region there was a possible hyperplastic polyp removed with biopsy forceps. . Findings:: Polyps x 4 as noted above Recommendations:: Repeat colonoscopy pending pathology but likely 2 to 3 years. Complications:: None immediately apparent Estimated blood obtained (mL): 1 Colonoscopy Component Colonoscopy Component Was a colonoscopy performed during today's procedure?: Yes Recommended follow up colonoscopy of at least 10 years?: No If no, follow up colonoscopy recommended in ___ years?: See above Reason for not recommending >/= 10 yr follow-up interval?: See above
[2025-04-23 08:05] VITALS: BP 173/69; PULSE 68; RESP 18; TEMP 36.4; O2SAT 94
--- NOTE | 2025-04-23 08:13 | P.PNANES_ITS ---
[facility] Disclaimer: The information contained in this section may have been updated after the patient was seen, as this information can be updated by other users. Medical History Sleep apnea Diabetes Skin cancer History of heart attack Chest pain Difficulty swallowing Abnormal electrocardiography Abnormal cardiovascular stress test Dyspnea Atypical angina Surgical History History of colonoscopy History of hernia repair History of heart artery stent Hx of heart bypass surgery Family History Other Diabetes Family history of cancer Family history of heart disease Social History Smoking Status: Never smoker second hand exposure: Yes alcohol intake: never substance use type: marijuana current occupational status: retired and disabled Travel in the last 8 weeks?: None household members: significant other housing: house current occupational exposures/hazards: No caffeine: Yes Have you lived/traveled outside [place] in past 30 days?: No Contact w/someone who lives/traveled outside [place] past 30 days?: No Exposure to someone with infectious disease in past 14 days?: No Do you have a fever (greater than 100.4 F or 38 C)?: No Have you tested positive for COVID-19?: No Exposed to someone with COVID-19 in past 14 days?: No Do you have a sore throat?: No Do you have a cough?: No Do you have any weakness?: No Are you experiencing any nausea/vomitting?: No Do you have any diarrhea?: No Are you experiencing any unusual bleeding?: No Do you have any muscle aches/pain?: No Do you have any abdominal pain?: No Are you experiencing loss of taste or smell?: No [facility] Anesthesia Checklist Patient Identification Patient Identification: Arm Band and Verbal (Name & ) Structural Data Admitted From: Home Planned Operative Procedure/s: Colonoscopy Consent for Planned Operative Procedure(s) Verified: Yes Verified Documents: Surgical Consent NPO Status Verified Time NPO: 00:00 Chart Verification Results Verified: None Additional verifications Fingerstick Blood Glucose: 144 Anesthesia Reactions: No Hx Blood Transfusions: No Blood Transfusion Reaction: No Airway Assessment Mallampati Score:: Class II C-Spine Mobility Assessed: Yes TMJ Mobility Assessed: Yes (Broke jaw 1 month ago, no surgical intervention, jaw w/o pain and opens ) Dentition: Good Dentition Neurological Assessment Level of Consciousness: Awake, Alert and Appropriate Hx Seizures: No Numbness or tingling in extremities: No Anesthesia Plan Anesthesia Risk discussed: Yes Anesthesia Plan: Verified ASA Class: II Anesthesia Type: MAC
[2025-04-23 08:15] LABS: POC Glucose,Bedside 144 gm/dL (70-110)
[2025-04-23 08:58] VITALS: BP 89/54; PULSE 66; RESP 16; TEMP 36.3; O2SAT 94
[2025-04-23 09:08] VITALS: BP 97/51; PULSE 68; RESP 16; TEMP 36.3; O2SAT 96
[2025-04-23 09:18] VITALS: BP 115/66; PULSE 60; RESP 16; TEMP 36.3; O2SAT 97
[2025-04-23 09:28] VITALS: BP 115/66; PULSE 60; RESP 16; TEMP 36.3; O2SAT 97
== END 2025-04-23 09:28 | disposition home or self-care (01) ==
PROVIDERS: PCP Internal Medicine Adolescent Medicine; Visit Provider Surgery
PROC: 0DJD8ZZ Inspection of Lower Intestinal Tract, Via Natural or Artificial Opening Endoscopic (ICD-10-PCS; CPT 45380; principal; 2025-04-23 08:30)
DX: Z12.11 Encounter for screening for malignant neoplasm of colon (principal); D12.0 Benign neoplasm of cecum; D12.2 Benign neoplasm of ascending colon; D12.3 Benign neoplasm of transverse colon; K63.5 Polyp of colon; Z86.0101 Personal history of adenomatous and serrated colon polyps; K63.9 Disease of intestine, unspecified; I10 Essential (primary) hypertension; I25.10 Atherosclerotic heart disease of native coronary artery without angina pectoris; E11.9 Type 2 diabetes mellitus without complications; E78.5 Hyperlipidemia, unspecified; K21.9 Gastro-esophageal reflux disease without esophagitis; G47.30 Sleep apnea, unspecified; Z85.828 Personal history of other malignant neoplasm of skin; I25.2 Old myocardial infarction; Z95.1 Presence of aortocoronary bypass graft; Z95.5 Presence of coronary angioplasty implant and graft; Z79.82 Long term (current) use of aspirin; Z79.84 Long term (current) use of oral hypoglycemic drugs; Z79.899 Other long term (current) drug therapy; Z91.040 Latex allergy status
CPT/HCPCS: 45380; 45385; 82962; 88305; J2003; J2704